=== PATIENT | male | born 1995 | race Caucasian/White ===

== ENCOUNTER 2024-07-17 15:12 | Outpatient (CLI) | payer BC, SELFPAY | END 2024-07-17 15:13 | disposition home or self-care (01) | PROVIDERS: PCP Family Medicine; Visit Provider Family Medicine | DX: E11.9 Type 2 diabetes mellitus without complications (principal); I10 Essential (primary) hypertension; R53.83 Other fatigue; Z13.9 Encounter for screening, unspecified | CPT/HCPCS: 80048; 80061; 84443; 84460; 85025 ==